=== PATIENT | male | born 1945 | race Caucasian/White ===

== ENCOUNTER 2017-05-12 07:45 | Inpatient (IN) | payer MEDICARE, BC ==
[2017-05-08 10:27] LABS: CLARITY,URINE CLEAR (Clear); COLOR,URINE YELLOW (Yellow); GLUCOSE, URINE NEGATIVE (Neg); KETONES,URINE NEGATIVE (Neg); LEUKOCYTE ESTERASE ,URINE NEGATIVE (Neg); NITRITES, URINE NEGATIVE (Neg); OCCULT BLOOD,URINE NEGATIVE (Neg); PH,URINE 5.5 (4.8-8.0); PROTEIN,URINE NEGATIVE (Neg); UROBILINOGEN,URINE 0.2 E.U/dL (0.2-1.0)
[2017-05-08 10:28] LABS: BASOPHILS % (AUTO) 0.3 % (0-1); EOSINOPHILS # (AUTO) 0.3 X10'3 (0-0.9); EOSINOPHILS % (AUTO) 5.3 % (0-6); LYMPHOCYTES # (AUTO) 1.2 X10'3 (1.1-4.8); LYMPHOCYTES % (AUTO) 21.7 % (21-51); MEAN CORPUSCULAR HEMOGLOBIN 30.7 PG (27.0-31.0); MEAN CORPUSCULAR HGB CONC 34.1 % (33.0-36.5); MEAN CORPUSCULAR VOLUME 90.2 FL (78-98); MEAN PLATELET VOLUME 8.4 FL (7.4-10.4); MONOCYTES # (AUTO) 0.5 X10'3 (0-0.9); MONOCYTES % (AUTO) 8.9 % (2-12); NEUTROPHILS # (AUTO) 3.6 X10'3 (1.8-7.7); NEUTROPHILS % (AUTO) 63.8 % (42-75); PRE OP HEMATOCRIT 45.9 % (42.0-52.0); PRE OP HEMOGLOBIN 15.6 g/dL (14.0-17.9); PRE OP PLATELET COUNT 219 X10'3 (140-440); RED BLOOD COUNT 5.09 X10'6 (4.70-6.10); RED CELL DISTRIBUTION WIDTH 13.3 % (11.5-14.5)
[2017-05-08 10:39] LABS: UA COLLECTION TYPE CLN CATCH MIDSTREAM
[2017-05-08 10:41] LABS: PRE OP PROTIME 10.5 SECONDS (9.0-12.0)
[2017-05-08 10:47] LABS: ALBUMIN 3.6 G/DL (3.4-5.0); ALBUMIN/GLOBULIN RATIO 0.9 (1.1-1.5); ALKALINE PHOSPHATASE 77 IU/L (46-116); BLOOD UREA NITROGEN 15 MG/DL (7-18); BUN/CREATININE RATIO 15.8 (5.4-32.0); CALCIUM 9.2 MG/DL (8.5-10.1); CHLORIDE 106 MMOL/L (99-107); CREATININE 0.95 MG/DL (0.60-1.10); PRE OP ALT 44 U/L (30-65); PRE OP ANION GAP 8 (8-16); PRE OP AST 25 U/L (10-37); PRE OP BILIRUB, TOTAL 0.4 MG/DL (0.0-1.0); PRE OP GLUCOSE 104 MG/DL (70-104); PRE OP POTASSIUM 4.5 MMOL/L (3.4-5.1); PRE OP SODIUM 141 MMOL/L (135-145); TOTAL CARBON DIOXIDE 27.3 MMOL/L (24-32); TOTAL PROTEIN 7.4 G/DL (6.4-8.2); eGFR 78 ML/MIN
[~2017-05-12] VITALS: Ht 172.7 cm; Wt 76.4 kg
[2017-05-12] VITALS (20 sets, daily range): BP systolic 110–138; BP diastolic 68–85
[~2017-05-12 07:45] MED LIST: MULT-38 PO; OMEP20TA5 PO; acetaminophen 325mg tablet PO ONE; cefazolin/dext.iso 2gm/50ml 50 ML IV ONE; famotidine 20mg tablet PO ONE; gabapentin 300mg capsule PO ONE; oxyCODONE SR 10mg (sust. release) tab PO ONE; ringers solution, lacted 1,000 ML IV SCH; tranexamic acid inj. 1,000 MG in normal saline 100ml IV soln 90 ML IV ONE
[2017-05-12] MEDS ORDERED: LIDOcaine 1% (10mg/ml) 2ml vial ONE (08:20)
[2017-05-12] MEDS ORDERED: fentaNYL /PF 50mcg/ml 5ml ampule ONE (08:45)
[2017-05-12] MEDS ORDERED: MIDAZolam 5mg/5ml vial ONE (08:45)
[2017-05-12] MEDS ORDERED: propofol inj 20 ML IV ONE (08:45)
[2017-05-12] MEDS ORDERED: rocuronium 10mg/ml inj IV ONE (08:46)
[2017-05-12] MEDS ORDERED: bacitracin inj 150,000 UNIT in sodium chloride irrig. sol 3,000 ML IR ONE (09:00)
[2017-05-12] MEDS ORDERED: BUPIVAcaine 0.5% inj/PF 30 ML ONE (09:27)
[2017-05-12] MEDS ORDERED: MORPHINE SULFATE/PF 0.5 MG/ML 10ML AMPUL ONE (09:41)
[2017-05-12] MEDS ORDERED: LIDOcaine 2% (20mg/ml) 5ml vial ONE (09:49)
[2017-05-12] MEDS ORDERED: dexamethasone sod phosphate 4mg/ml inj. ONE (10:12)
[2017-05-12] MEDS ORDERED: ondansetron/PF 4mg/2ml inj ONE (10:13)
[2017-05-12] MEDS ORDERED: ondansetron/PF 4mg/2ml inj IV PRN ×2 (10:50→11:50)
[2017-05-12] MEDS ORDERED: proMETHazine 25mg rectal suppository RC PRN (10:50)
[2017-05-12] MEDS ORDERED: meperidine/PF 50mg/ml syringe IV PRN ×2 (10:50)
[2017-05-12] MEDS ORDERED: proCHLORperazine 10 MG/2 ml inj IV PRN (10:50)
[2017-05-12] MEDS ORDERED: ringers solution, lacted 1,000 ML IV SCH (10:50)
[2017-05-12] MEDS ORDERED: fentaNYL/PF 50MCG/1 ML 2ML syringe IV PRN (10:50)
[2017-05-12] MEDS ORDERED: BUPIVAcaine 0.5% inj/PF 30 ml vial IJ ONE (11:00)
[2017-05-12] MEDS ORDERED: naloxone 2mg/2ml inj 2 MG in normal saline 500ml IV soln 498 ML IV PRN (11:10)
[2017-05-12] MEDS ORDERED: diphenhydrAMINE 50 mg/ml inj IV PRN (11:10)
[2017-05-12] MEDS ORDERED: ceFAZolin 1000mg inj ONE (11:16)
[2017-05-12] MEDS ORDERED: glycopyrrolate 0.2mg/ml inj ONE (11:19)
[2017-05-12] MEDS ORDERED: neostigmine methylsulfate 1 MG/ML 10ml vial ONE (11:19)
[2017-05-12] MEDS ORDERED: acetaminophen 325mg tablet PO PRN (11:50)
[2017-05-12] MEDS ORDERED: HYDROmorphone inj. 0.5 MG/0.5 ML DISP.SYRIN IV PRN (11:50)
[2017-05-12] MEDS ORDERED: bisacodyl 10mg suppository rectal RC PRN (11:50)
[2017-05-12] MEDS ORDERED: diphenhydrAMINE 25mg capsule PO PRN ×2 (11:50)
[2017-05-12] MEDS ORDERED: magnesium hydroxide 30ml (MOM) UD suspension PO PRN (11:50)
[2017-05-12] MEDS ORDERED: tamsulosin 0.4mg capsule PO ONE (12:30)
[2017-05-12] MEDS: gabapentin 300mg capsule PO SCH ×2 (13:00→20:25)
[2017-05-12] MEDS: acetaminophen 325mg tablet PO SCH ×2 (14:00→20:25)
[2017-05-12] MEDS: potassium cl 20mEq in 1/2 NS 1,000 ML IV SCH (15:55)
[2017-05-12] MEDS: cefazolin 1gm/NS 100mL 100 ML IV SCH (15:58)
[2017-05-12] MEDS: celeCOXIB 100mg capsule PO SCH (20:24)
[2017-05-12] MEDS: tamsulosin 0.4mg capsule PO SCH (20:24)
[2017-05-12] MEDS: ascorbic acid 500mg tablet PO SCH (20:25)
[2017-05-12] MEDS: sennosides 8.6mg tablet PO SCH (20:25)
[2017-05-13] MEDS: cefazolin 1gm/NS 100mL 100 ML IV SCH (00:09)
[2017-05-13] MEDS: potassium cl 20mEq in 1/2 NS 1,000 ML IV SCH ×4 (00:09→20:46)
[2017-05-13 02:00] VITALS: BP 100/63
[2017-05-13] MEDS: acetaminophen 325mg tablet PO SCH ×4 (02:03→20:44)
[2017-05-13] MEDS: oxyCODONE IR 5mg (immed. release) tablet PO PRN ×2 (05:25→12:43)
[2017-05-13 05:41] LABS: BASOPHILS % (AUTO) 0.4 % (0-1); EOSINOPHILS # (AUTO) 0.2 X10'3 (0-0.9); EOSINOPHILS % (AUTO) 1.6 % (0-6); HEMATOCRIT 38.8 % (42.0-52.0); HEMOGLOBIN 13.5 g/dl (14.0-17.9); LYMPHOCYTES # (AUTO) 1.2 X10'3 (1.1-4.8); LYMPHOCYTES % (AUTO) 11.1 % (21-51); MEAN CORPUSCULAR HEMOGLOBIN 31.4 PG (27.0-31.0); MEAN CORPUSCULAR HGB CONC 34.8 % (33.0-36.5); MEAN CORPUSCULAR VOLUME 90.3 FL (78-98); MEAN PLATELET VOLUME 8.1 FL (7.4-10.4); MONOCYTES % (AUTO) 9.5 % (2-12); NEUTROPHILS # (AUTO) 8.4 X10'3 (1.8-7.7); NEUTROPHILS % (AUTO) 77.4 % (42-75); PLATELET COUNT 192 X10'3 (140-440); RED CELL DISTRIBUTION WIDTH 13.4 % (11.5-14.5); WHITE BLOOD COUNT 10.8 X10'3 (4.5-11.0)
[2017-05-13 05:45] LABS: INR 2.1 INR; PROTHROMBIN TIME 21.4 SECONDS (9.0-12.0)
[2017-05-13 05:58] LABS: ANION GAP 7 (8-16); CHLORIDE 106 MMOL/L (99-107); POTASSIUM 4.4 MMOL/L (3.5-5.1); SODIUM 142 MMOL/L (135-145); TOTAL CARBON DIOXIDE 28.6 MMOL/L (24-32)
[2017-05-13 06:00] VITALS: BP 98/71
[2017-05-13] MEDS: pantoprazole 40mg Tablet.DR PO SCH (07:09)
[2017-05-13] MEDS: celeCOXIB 100mg capsule PO SCH ×2 (07:09→20:39)
[2017-05-13] MEDS: gabapentin 300mg capsule PO SCH ×3 (07:10→20:39)
[2017-05-13] MEDS: multivitamins, therapeutics tablet PO SCH (07:11)
[2017-05-13] MEDS: ascorbic acid 500mg tablet PO SCH ×2 (07:11→20:39)
[2017-05-13 07:31] LABS: INR 2.2 INR; PROTHROMBIN TIME 22.2 SECONDS (9.0-12.0)
[2017-05-13 10:00] VITALS: BP 109/60
[2017-05-13] MEDS: Protein Shake (high protein) 240ml (8oz) cup PO SCH ×2 (13:05→18:00)
[2017-05-13 17:00] VITALS: BP 109/63
[2017-05-13] MEDS: sennosides 8.6mg tablet PO SCH (20:39)
[2017-05-13] MEDS: tamsulosin 0.4mg capsule PO SCH (20:39)
[2017-05-13 22:00] VITALS: BP_SYST 110; BP_SYST 115; BP_DIAS 69
[2017-05-14] MEDS: acetaminophen 325mg tablet PO SCH ×2 (02:00→08:21)
[2017-05-14] MEDS: potassium cl 20mEq in 1/2 NS 1,000 ML IV SCH (05:02)
[2017-05-14 06:25] LABS: BASOPHILS % (AUTO) 0.1 % (0-1); EOSINOPHILS # (AUTO) 0.3 X10'3 (0-0.9); EOSINOPHILS % (AUTO) 3.8 % (0-6); HEMATOCRIT 37.2 % (42.0-52.0); LYMPHOCYTES # (AUTO) 1.1 X10'3 (1.1-4.8); LYMPHOCYTES % (AUTO) 15.1 % (21-51); MEAN CORPUSCULAR HEMOGLOBIN 31.2 PG (27.0-31.0); MEAN PLATELET VOLUME 8.1 FL (7.4-10.4); MONOCYTES # (AUTO) 0.9 X10'3 (0-0.9); MONOCYTES % (AUTO) 11.9 % (2-12); NEUTROPHILS # (AUTO) 5.3 X10'3 (1.8-7.7); NEUTROPHILS % (AUTO) 69.1 % (42-75); PLATELET COUNT 175 X10'3 (140-440); RED BLOOD COUNT 4.18 X10'6 (4.70-6.10); RED CELL DISTRIBUTION WIDTH 13.5 % (11.5-14.5); WHITE BLOOD COUNT 7.6 X10'3 (4.5-11.0)
[2017-05-14 06:26] LABS: INR 1.6 INR; PROTHROMBIN TIME 16.6 SECONDS (9.0-12.0)
[2017-05-14] MEDS ORDERED: ASPI-1 PO (07:53)
[2017-05-14] MEDS ORDERED: CIPR-230 PO (07:53)
[2017-05-14] MEDS: multivitamins, therapeutics tablet PO SCH (08:17)
[2017-05-14] MEDS: pantoprazole 40mg Tablet.DR PO SCH (08:17)
[2017-05-14] MEDS: gabapentin 300mg capsule PO SCH (08:17)
[2017-05-14] MEDS: ascorbic acid 500mg tablet PO SCH (08:18)
[2017-05-14] MEDS: celeCOXIB 100mg capsule PO SCH (08:18)
[2017-05-14] MEDS ORDERED: acetaminophen 325mg tablet PO PRN (11:50)
== END 2017-05-14 10:55 | disposition home or self-care (01) | DRG 470 ==
LOC: PAS IN 07:45 → EDSTATUS 10:30 → ORTHO 4S 13:15
PROVIDERS: ADMIT Specialist; ATTEND Specialist
PROC: 0T9B80Z Drainage of Bladder with Drainage Device, Via Natural or Artificial Opening Endoscopic (ICD-10-PCS; 2017-05-12)
PROC: 0T7D8ZZ Dilation of Urethra, Via Natural or Artificial Opening Endoscopic (ICD-10-PCS; 2017-05-12)
PROC: 0SR902Z Replacement of Right Hip Joint with Metal on Polyethylene Synthetic Substitute, Open Approach (ICD-10-PCS; principal; 2017-05-12 09:50)
DX: M16.11 Unilateral primary osteoarthritis, right hip (principal); N36.5 Urethral false passage; D62 Acute posthemorrhagic anemia; N35.9 Urethral stricture, unspecified; K21.9 Gastro-esophageal reflux disease without esophagitis; R33.9 Retention of urine, unspecified; F17.220 Nicotine dependence, chewing tobacco, uncomplicated; Z91.013 Allergy to seafood; Z91.018 Allergy to other foods; Z79.899 Other long term (current) drug therapy; Z98.1 Arthrodesis status
CPT/HCPCS: 36415; 73502; 80051; 80053; 81003; 85025; 85610; 85730; 86885; 86900; 86901; 87070; 97110; 97116; 97162; A4565; A6253; A6449; A6455; A7000; C1776; J0690; J1100; J2001; J2250; J2274; J2405; J2704; J2710; J3010; J3490; J7030; J7120

== ENCOUNTER 2021-03-16 07:36 | Day surgery (SDC) | payer MEDICARE, BC ==
[2021-03-08 14:55] LABS: BASOPHILS % (AUTO) 0.7 % (0-1); EOSINOPHILS # (AUTO) 0.3 X10'3 (0-0.9); EOSINOPHILS % (AUTO) 4.1 % (0-6); LYMPHOCYTES # (AUTO) 1.2 X10'3 (1.1-4.8); LYMPHOCYTES % (AUTO) 16.4 % (21-51); MEAN CORPUSCULAR HEMOGLOBIN 31.5 PG (27.0-31.0); MEAN CORPUSCULAR VOLUME 92.8 FL (78-98); MEAN PLATELET VOLUME 8.3 FL (7.4-10.4); MONOCYTES # (AUTO) 0.7 X10'3 (0-0.9); MONOCYTES % (AUTO) 9.8 % (2-12); PRE OP HEMATOCRIT 47.6 % (42.0-52.0); PRE OP HEMOGLOBIN 16.2 g/dL (14.0-17.9); PRE OP PLATELET COUNT 216 X10'3 (140-440); RED BLOOD COUNT 5.12 X10'6 (4.70-6.10); RED CELL DISTRIBUTION WIDTH 13.6 % (11.5-14.5)
[2021-03-08 15:10] LABS: ALBUMIN 3.5 G/DL (3.4-5.0); ALBUMIN/GLOBULIN RATIO 1.1 (1.1-1.5); ALKALINE PHOSPHATASE 78 IU/L (46-116); BLOOD UREA NITROGEN 15 MG/DL (7-18); CALCIUM 9.1 MG/DL (8.5-10.1); CHLORIDE 105 MMOL/L (99-107); CREATININE 0.94 MG/DL (0.60-1.10); PRE OP ALT 29 U/L (30-65); PRE OP ANION GAP 7 (8-16); PRE OP AST 23 U/L (10-37); PRE OP BILIRUB, TOTAL 0.5 MG/DL (0.0-1.0); PRE OP GLUCOSE 113 MG/DL (70-104); PRE OP POTASSIUM 4.4 MMOL/L (3.4-5.1); PRE OP SODIUM 139 MMOL/L (135-145); TOTAL CARBON DIOXIDE 27.3 MMOL/L (24-32); TOTAL PROTEIN 6.7 G/DL (6.4-8.2); eGFR 78 ML/MIN
[~2021-03-16] VITALS: Ht 170.2 cm; Wt 75.9 kg
[2021-03-16] VITALS (7 sets, daily range): BP systolic 113–122; BP diastolic 72–77
[~2021-03-16 07:36] MED LIST changes: +APIX5TAB3 PO; +BUPIVAcaine/PF 2.5 mg/ml (0.25%) 30ml vial ONE; +DOCUMENT DATE & TIME OF BETA-BLOCKER PO ONE; +METO50TA16 PO; -MULT-38 PO; +OMEP-50 PO; -OMEP20TA5 PO; -acetaminophen 325mg tablet PO ONE; -cefazolin/dext.iso 2gm/50ml 50 ML IV ONE; +cefazolin/dext.iso 2gm/50ml IV ONE; -gabapentin 300mg capsule PO ONE; -oxyCODONE SR 10mg (sust. release) tab PO ONE; -tranexamic acid inj. 1,000 MG in normal saline 100ml IV soln 90 ML IV ONE
[2021-03-16] MEDS ORDERED: midazolam 1 mg/ML 2ml injection ONE (09:23)
[2021-03-16] MEDS ORDERED: fentaNYL/PF 50MCG/1 ML 2ML syringe ONE (09:23)
[2021-03-16] MEDS ORDERED: ringers solution, lacted 1,000 ML IV SCH (09:25)
[2021-03-16] MEDS ORDERED: meperidine/PF 25mg/ml syringe IV PRN ×3 (09:25)
[2021-03-16] MEDS ORDERED: ondansetron/PF 4mg/2ml inj IV PRN (09:25)
[2021-03-16] MEDS ORDERED: proCHLORperazine 10 MG/2 ml inj IV PRN (09:25)
[2021-03-16] MEDS ORDERED: morphine 4 MG/ML inj SYRINge IV PRN (09:25)
[2021-03-16] MEDS ORDERED: hydrALAZINE 20mg/ml inj. IV PRN (09:25)
[2021-03-16] MEDS ORDERED: labetalol 20mg/4ml (5mg/ml) syringe IV PRN (09:25)
[2021-03-16] MEDS ORDERED: morphine 2 MG/ML inj. syringe IV PRN (09:25)
[2021-03-16] MEDS ORDERED: acetaminophen 1,000mg/100ml IV 100 ML IV PRN (09:25)
[2021-03-16] MEDS ORDERED: propofol inj 20 ML IV ONE (09:38)
[2021-03-16] MEDS ORDERED: LIDOcaine 0.5% (5mg/ml) 50ml vial ONE (09:38)
--- NOTE | 2021-03-16 09:47 | NUR ---
Received from OR via [facility] TO RIGHT WRIST CDI. PT DENIES PAIN., accompanied by Anesthesiologist DR PRIETO and OR NURSE ANNA report given by Anesthesiolgist. Addendum: 03/16/21 at 1000 by Janeth Gallegos RN Amended: Links added.
--- NOTE | 2021-03-16 10:47 | NUR ---
INSTRUCTIONS. PATIENT D/C I HAVE REVIEWED D/C INSTRUCTIONS WITH PATIENT AND THEY HAVE VERBALIZED UNDERSTANDING OF INSTRUCTION. PT DC HOME WITH ALL BELONGINGS VIA WC TO POV WITH FAMILY Addendum: 03/16/21 at 1105 by Janeth Gallegos RN Amended: Links added.
== END 2021-03-16 10:47 | disposition home or self-care (01) ==
LOC: PAS 07:36
PROVIDERS: ATTEND Orthopaedic Surgery Hand Surgery
DX: G56.01 Carpal tunnel syndrome, right upper limb (principal); N40.0 Benign prostatic hyperplasia without lower urinary tract symptoms; M17.0 Bilateral primary osteoarthritis of knee; E66.8 Other obesity; Z68.26 Body mass index [BMI] 26.0-26.9, adult; I48.91 Unspecified atrial fibrillation; K21.9 Gastro-esophageal reflux disease without esophagitis; Z79.899 Other long term (current) drug therapy; Z79.82 Long term (current) use of aspirin; Z96.641 Presence of right artificial hip joint; Z98.890 Other specified postprocedural states; Z72.89 Other problems related to lifestyle; Z91.013 Allergy to seafood; Z20.822 Contact with and (suspected) exposure to COVID-19; Z83.3 Family history of diabetes mellitus; Z80.3 Family history of malignant neoplasm of breast
CPT/HCPCS: 36415; 64721; 80053; 82948; 85025; J0690; J2250; J2704; J3010; J3490; J7030; J7120; U0003; U0005; Z7506; Z7512; A4215

== ENCOUNTER 2022-03-19 07:14 | Inpatient (IN) | payer MEDICARE, BC ==
[2022-03-12 14:50] LABS: BASOPHILS # (AUTO) 0.1 X10'3 (0-0.2); EOSINOPHILS # (AUTO) 0.2 X10'3 (0-0.9); EOSINOPHILS % (AUTO) 3.1 % (0-6); LYMPHOCYTES # (AUTO) 1.1 X10'3 (1.1-4.8); LYMPHOCYTES % (AUTO) 14.8 % (21-51); MEAN CORPUSCULAR HEMOGLOBIN 31.3 PG (27.0-31.0); MEAN CORPUSCULAR HGB CONC 33.5 g/dL (33.0-36.5); MEAN CORPUSCULAR VOLUME 93.4 FL (78-98); MEAN PLATELET VOLUME 8.2 FL (7.4-10.4); MONOCYTES # (AUTO) 0.7 X10'3 (0-0.9); MONOCYTES % (AUTO) 8.6 % (2-12); NEUTROPHILS # (AUTO) 5.5 X10'3 (1.8-7.7); NEUTROPHILS % (AUTO) 72.5 % (42-75); PRE OP HEMATOCRIT 51.8 % (42.0-52.0); PRE OP HEMOGLOBIN 17.3 g/dL (14.0-17.9); PRE OP PLATELET COUNT 221 X10'3 (140-440); RED BLOOD COUNT 5.54 X10'6 (4.70-6.10); RED CELL DISTRIBUTION WIDTH 13.8 % (11.5-14.5)
[2022-03-12 14:59] LABS: ALBUMIN 3.7 G/DL (3.4-5.0); ALBUMIN/GLOBULIN RATIO 1.2 (1.1-1.5); ALKALINE PHOSPHATASE 84 IU/L (46-116); BLOOD UREA NITROGEN 15 MG/DL (7-18); BUN/CREATININE RATIO 15.8 (5.4-32.0); CHLORIDE 104 MMOL/L (99-107); CREATININE 0.95 MG/DL (0.60-1.10); PRE OP ALT 47 U/L (30-65); PRE OP ANION GAP 7 (8-16); PRE OP AST 29 U/L (10-37); PRE OP BILIRUB, TOTAL 0.5 MG/DL (0.0-1.0); PRE OP GLUCOSE 109 MG/DL (70-104); PRE OP SODIUM 139 MMOL/L (135-145); TOTAL CARBON DIOXIDE 27.9 MMOL/L (24-32); TOTAL PROTEIN 6.9 G/DL (6.4-8.2); eGFR 77 ML/MIN
[~2022-03-19] VITALS: Ht 170.2 cm; Wt 74.7 kg
[2022-03-19] VITALS (31 sets, daily range): BP systolic 87–136; BP diastolic 53–78
[~2022-03-19 07:14] MED LIST changes: -BUPIVAcaine/PF 2.5 mg/ml (0.25%) 30ml vial ONE; -DOCUMENT DATE & TIME OF BETA-BLOCKER PO ONE; +HYDROcodone/acetaminophen 10/325mg tab PO PRN; +HYDROmorphone 1 mg/ml syringe IV PRN; +HYDROmorphone inj. 0.5 MG/0.5 ML DISP.SYRIN IV PRN; -OMEP-50 PO; +OMEP20CA16 PO; +TEST200V33 IM; +acetaminophen 325mg tablet PO ONE; +acetaminophen 325mg tablet PO PRN; +bisacodyl 10mg suppository rectal RC PRN; +ceFAZolin inj. 2,000 MG in dextrose 5%-water 100 ML IV ONE; -cefazolin/dext.iso 2gm/50ml IV ONE; +celeCOXIB 100mg capsule PO ONE; +diphenhydrAMINE 25mg capsule PO PRN; +gabapentin 300mg capsule PO ONE; +magnesium hydroxide 30ml (MOM) UD suspension PO PRN; +metoclopramide 5 mg/ml inj IV ONE; +naloxone 0.4 mg/ml inj IV PRN; +ondansetron/PF 4mg/2ml inj IV PRN; +oxyCODONE SR 10mg (sust. release) tab -2 tabs (20mg) PO ONE; +tranexamic acid inj. 1,000 MG in normal saline IV soln 100ML IV ONE; +vancomycin 1,500 MG in NS 300ml IV soln IV ONE
--- NOTE | 2022-03-19 07:25 | NUR ---
PREPARED PT FOR SURGERY OF RIGHT KNEE. PT ARRIVED IN AMBULATORY STATES HE HAS DIFFICULTY WALKING LONG DISTANCES. IV STARTED WITHOUT DIFFICULTY I DR OGDEN BEDSIDE, KNEE MARKED, PT NOTED TO HAVE 2+ PEDAL PULSES BILATERALLY. CARDIAC CLEARANCE IN CHART EF DOCUMENTED AT 60%. THEY WERE MARKED. PT STATES HE READ AN INFORMATION PACKET ABOUT THE SURGERY AND DOES NOT HAVE ANY QUESTIONS AT THIS TIME. PT DID NOT USE OINTMENT IN HIS NOSE IT WAS NOT ORDERED BY PHYSICIAN. HE DID USE HIBACLENS SOAP FOR SHOWERING FOR 5 DAYS PRIOR TO SURGERY INCLUDING ON THE DAY OF SURGERY. PT INSTRUCTED ON THE USE OF INCENTIVE SPIROMETRY AND WAS ABLE TO RETURN DEMONSTRATE THE USE OF IT.
[2022-03-19] MEDS ORDERED: epiNEPHrine 1 mg/ml inj ONE (07:47)
[2022-03-19] MEDS ORDERED: ROPIVAcaine 0.5% (5mg/ml) 30ml vial ONE ×2 (07:47→11:36)
[2022-03-19] MEDS ORDERED: cloNIDine hcl/PF 100mcg/ml inj ONE (07:47)
[2022-03-19] MEDS ORDERED: vancomycin 1,000mg inj ONE (07:48)
[2022-03-19] MEDS: metoprolol tartrate 25mg tablet PO SCH ×2 (08:00→20:25)
[2022-03-19] MEDS: pantoprazole 40mg Tablet.DR PO SCH (08:00)
[2022-03-19] MEDS ORDERED: fentaNYL/PF 50MCG/1 ML 2ML syringe ONE (10:14)
[2022-03-19] MEDS ORDERED: midazolam 1 mg/ML 2ml injection ONE (10:15)
[2022-03-19] MEDS ORDERED: labetalol 20mg/4ml (5mg/ml) syringe IV PRN (11:10)
[2022-03-19] MEDS ORDERED: ROPIVAcaine 0.2%/PF PUMP/bolus 545 ML ADDCANAL SCH (11:10)
[2022-03-19] MEDS ORDERED: meperidine/PF 25mg/ml syringe IV PRN ×3 (11:10)
[2022-03-19] MEDS ORDERED: acetaminophen 1,000mg/100ml IV 100 ML IV PRN (11:10)
[2022-03-19] MEDS ORDERED: proCHLORperazine 10 MG/2 ml inj IV PRN (11:10)
[2022-03-19] MEDS ORDERED: ROPIVAcaine 0.2% (10 MG/5 ML) BOLUS INJECTION ADDCANAL PRN (11:10)
[2022-03-19] MEDS ORDERED: ringers solution, lacted 1,000 ML IV SCH (11:10)
[2022-03-19] MEDS ORDERED: ondansetron/PF 4mg/2ml inj IV PRN (11:10)
[2022-03-19] MEDS ORDERED: morphine 4 MG/ML inj SYRINge IV PRN (11:10)
[2022-03-19] MEDS ORDERED: hydrALAZINE 20mg/ml inj. IV PRN (11:10)
[2022-03-19] MEDS ORDERED: morphine 2 MG/ML inj. syringe IV PRN (11:10)
[2022-03-19] MEDS ORDERED: propofol inj 20 ML IV ONE ×2 (11:36)
--- NOTE | 2022-03-19 12:09 | NUR ---
Received from OR via BED, accompanied by Anesthesiologist DR PRIETO and report given by Anesthesiologist AND OPERATOR GROUND BASED AIR DEFENCE. PT VERY DROWSY, UNABLE TO MOVE BILAT LE'S, PT HAD SAB AND ACB. RIGHT KNEE W/UNA DRSG CDI W/GREEN LIGHT ILLUMINATION, ACB CATHETER INTACT, KNEE WRAP AND POWDER PACK. Addendum: 03/19/22 at 1250 by Alicia Flores RN Amended: Links added.
[2022-03-19] MEDS ORDERED: NORMAL SALINE IV ONE (15:30)
[2022-03-19] MEDS ORDERED: TRANEXAMIC ACID IV ONE (15:30)
[2022-03-19] MEDS ORDERED: LIDOcaine 2% 10ml TOPICAL JELLY (Urojet) MM ONE (15:50)
[2022-03-19] MEDS: potassium cl 20mEq in 1/2 NS 1,000 ML IV SCH ×2 (16:00→16:55)
--- NOTE | 2022-03-19 16:19 | NUR ---
15:40 PT ATTEMPT TO VOID X 2, UNABLE. BLADDER SCANNED FOR 900 ML (+), DALL INTO DR OGDEN AND UPDATED. ORDERS RECEIVED TO PLACE RENDON CATHETER. UROJECT W/LIDOCAINE INSERTED AND 16 INDONESIAN RENDON CATHETER PLACED W/ASEPTIC TECHNIQUE W/O DIFFUCULTY. 900 ML CLEAR YELLOW URINE RETURN. Report called to receiving nurse. Transferred via BED W/3 BAGS OF Belongings. BLL, CALL LIGHT GIVEN, SIDE RAILS UP X 2. PT ORIENTED TO SELF, CALL LIGHT AND SAFETY. COVERING RN NOTIFIED OF PTS ARRIVAL. Special Issues communicated to receiving nurse. YES. Addendum: 03/19/22 at 1637 by Alicia Flores RN Amended: Links added.
--- NOTE | 2022-03-19 18:43 | NUR ---
Report to Ginny Gavin RN
[2022-03-19] MEDS ORDERED: vancomycin/NS 1 GM ADD-VANTAGE 250 ML IV SCH (20:00)
[2022-03-19] MEDS ORDERED: sennosides 8.6mg tablet PO SCH (21:00)
[2022-03-20] MEDS: potassium cl 20mEq in 1/2 NS 1,000 ML IV SCH (01:22)
[2022-03-20 02:00] VITALS: BP 109/61
[2022-03-20 06:00] VITALS: BP 120/80
--- NOTE | 2022-03-20 06:10 | NUR ---
Patient in room [facility]. I have received report from Ginny SCHMITT and had the opportunity to ask questions and assume patient care.
[2022-03-20 06:35] LABS: BASOPHILS % (AUTO) 0.3 % (0-1); EOSINOPHILS # (AUTO) 0.1 X10'3 (0-0.9); EOSINOPHILS % (AUTO) 0.9 % (0-6); HEMATOCRIT 45.8 % (42.0-52.0); HEMOGLOBIN 15.5 g/dl (14.0-17.9); LYMPHOCYTES # (AUTO) 0.7 X10'3 (1.1-4.8); LYMPHOCYTES % (AUTO) 6.6 % (21-51); MEAN CORPUSCULAR HEMOGLOBIN 31.5 PG (27.0-31.0); MEAN CORPUSCULAR HGB CONC 33.9 g/dL (33.0-36.5); MEAN CORPUSCULAR VOLUME 92.9 FL (78-98); MEAN PLATELET VOLUME 8.6 FL (7.4-10.4); MONOCYTES # (AUTO) 1.3 X10'3 (0-0.9); MONOCYTES % (AUTO) 12.4 % (2-12); NEUTROPHILS # (AUTO) 8.5 X10'3 (1.8-7.7); NEUTROPHILS % (AUTO) 79.8 % (42-75); PLATELET COUNT 175 X10'3 (140-440); RED BLOOD COUNT 4.93 X10'6 (4.70-6.10); RED CELL DISTRIBUTION WIDTH 13.8 % (11.5-14.5); WHITE BLOOD COUNT 10.7 X10'3 (4.5-11.0)
[2022-03-20 06:45] LABS: ANION GAP 6 (8-16); CHLORIDE 102 MMOL/L (99-107); SODIUM 134 MMOL/L (135-145); TOTAL CARBON DIOXIDE 26.3 MMOL/L (24-32)
[2022-03-20] MEDS: pantoprazole 40mg Tablet.DR PO SCH (07:43)
[2022-03-20 07:44] VITALS: BP_SYST 120
[2022-03-20] MEDS: metoprolol tartrate 25mg tablet PO SCH (07:44)
[2022-03-20] MEDS ORDERED: multivitamins, therapeutics tablet PO SCH (08:00)
[2022-03-20] MEDS ORDERED: gabapentin 300mg capsule PO SCH (08:00)
[2022-03-20] MEDS ORDERED: TESTOSTERONE CYPIONATE 200 MG/ML VIAL IM SCH (08:00)
[2022-03-20] MEDS ORDERED: apixaban 5mg tablet PO SCH (08:00)
[2022-03-20] MEDS ORDERED: ascorbic acid 500mg tablet PO SCH (08:00)
--- NOTE | 2022-03-20 10:00 | NUR ---
I have reviewed and agree with all interventions, assessments performed, and documentation by SETH Santillan.
--- NOTE | 2022-03-20 10:00 | NUR ---
I have reviewed and agree with all interventions, assessments performed and documented by SETH Santillan.
--- NOTE | 2022-03-20 10:15 | NUR ---
Patient discharged today and discharge instructions were explained to patient. Questions were answered. Patient dressed himself and he gathered all belongings. IV removed by RN. patient was wheeled down stairs and into the care of family. Left in private vehicle, alert and appropriate.
--- NOTE | 2022-03-20 10:59 | NUR ---
Joint surgery consult: Pt s/p R knee surgery this admit per EMR. Pt seen by ANABELA for written/verbal high protein diet ed w/ RD contact information provided. ANABELA encouraged pt to contact dietitian's office if further nutrition questions/concerns. Addendum: 03/20/22 at [address] Amended: Links added.
[2022-03-20] MEDS ORDERED: celeCOXIB 100mg capsule PO SCH (20:00)
== END 2022-03-20 10:39 | disposition home or self-care (01) | DRG 470 ==
LOC: PAS 07:14 → SUR 3N 16:37
PROVIDERS: ADMIT Orthopaedic Surgery; ATTEND Orthopaedic Surgery
PROC: 0SRC069 Replacement of Right Knee Joint with Oxidized Zirconium on Polyethylene Synthetic Substitute, Cemented, Open Approach (ICD-10-PCS; principal; 2022-03-19 10:08)
DX: M17.11 Unilateral primary osteoarthritis, right knee (principal); Z79.01 Long term (current) use of anticoagulants
CPT/HCPCS: 36415; 73560; 80051; 80053; 82948; 85025; 86885; 86900; 86901; 87081; 97116; 97161; 97530; A4215; A4615; A6449; A7000; C1713; C1776; G0378; J0171; J0690; J0735; J2250; J2704; J2765; J2795; J3010; J3370; J3480; J3490; J7040; J7060; J7120